=== PATIENT | female | born 1995 | race Caucasian/White ===

== ENCOUNTER → 2019-10-28 | Outpatient (CLI) | payer OTHER ==
--- NOTE | 2019-10-28 12:44 | Diagnostic Imaging Report ---
Exam: Pelvic ultrasound. History: Pelvic pain Comparison: None Findings: Transabdominal sonographic evaluation of the pelvis. The uterus is anteverted in position, measuring 6.4 x 3.8 x 5.2 cm. No uterine mass. Endometrial stripe thickness is 7mm. The right ovary measures 5.8 x 3.2 x 5.0 cm and contains a 2.5 x 3.4 x 4.0 cm simple cyst. Left ovary not visualized due to overlying bowel gas. No free fluid in the pelvis. Impression: 4.0 cm left ovarian simple cyst is a benign finding in the physiologic size range. No further imaging follow-up is necessary. Signed by: Kaitlyn Stockton MD on 10/28/2019 12:41 PM
== END ==
LOC: US 11:02
PROVIDERS: ATTEND Family Medicine
DX: R10.2 Pelvic and perineal pain (principal)
CPT/HCPCS: 76856

== ENCOUNTER 2025-02-15 01:29 | Emergency (ER) | payer BC, OTHER ==
[~2025-02-15] VITALS: Ht 165.1 cm; Wt 69.4 kg
[2025-02-15 03:25] VITALS: PULSE 52; RESP 16; TEMP 98.9
[2025-02-15 03:27] VITALS: BP 125/77; PULSE 52; RESP 16; TEMP 98.9; O2SAT 100
== END 2025-02-15 03:34 | disposition home or self-care (01) ==
LOC: FSED 01:36
DX: R20.2 Paresthesia of skin (principal); R07.89 Other chest pain; R00.2 Palpitations; R00.1 Bradycardia, unspecified; H53.8 Other visual disturbances; R94.31 Abnormal electrocardiogram [ECG] [EKG]
CPT/HCPCS: 70450; 71046; 80053; 80307; 81003; 84484; 85025; 85379; 93005; 99284